=== PATIENT | male | born 1960 | race Caucasian/White ===

== ENCOUNTER 2016-07-21 21:06 | Emergency (ER) | payer SELFPAY ==
[2016-07-21] MEDS ORDERED: TRAMADOL 50 MG TAB ONE (21:37)
[2016-07-21] MEDS ORDERED: CYCLOBENZAPRINE 10 MG TAB ONE (21:38)
== END 2016-07-21 23:13 | disposition home or self-care (01) ==
LOC: ER 21:06
CPT/HCPCS: 72100